=== PATIENT | male | born 1960 | race Caucasian/White ===

== ENCOUNTER 2020-07-30 14:16 | Day surgery (SDC) | payer OTHER ==
[2020-07-30] MEDS ORDERED: Depo-Medrol 40 MG/ML IM ONE (14:17)
[2020-07-30] MEDS ORDERED: Xylocaine 1% Vial 30 ML PF IJ ONE (14:17)
[2020-07-30] MEDS ORDERED: Sodium Chloride 0.9(Preservative Free) 10 ML IJ ONE (14:17)
--- NOTE | 2020-07-30 18:20 | XRAY ---
Indication: Right L4-S1 transforaminal WILL. Intraoperative fluoroscopy was provided for 52 seconds. 5 digital spot images submitted for interpretation demonstrates posterior needle tips projecting over the expected right L4 and L5 nerve roots. Small amount of contrast injected for needle tip placement. Correlate with intraoperative findings/report.
--- NOTE | 2020-07-30 18:22 | XRAY ---
52 seconds of fluoroscopy was used in surgery for a right L4-L5 and L5-S1 transforaminal WILL injection.
== END 2020-07-30 18:00 | disposition home or self-care (01) ==
LOC: SDC-PAIN 14:16
PROVIDERS: ATTEND Psychiatry & Neurology Pain Medicine
DX: M54.16 Radiculopathy, lumbar region (principal); E78.5 Hyperlipidemia, unspecified; G47.30 Sleep apnea, unspecified; F41.8 Other specified anxiety disorders; M35.00 Sjogren syndrome, unspecified; Z79.899 Other long term (current) drug therapy
CPT/HCPCS: 72100; 77003; J1030; J2001

== ENCOUNTER 2020-09-17 11:37 | Day surgery (SDC) | payer OTHER ==
[2020-09-17] MEDS ORDERED: Xylocaine 1% Vial 30 ML PF IJ ONE (11:38)
[2020-09-17] MEDS ORDERED: Sodium Chloride 0.9(Preservative Free) 10 ML IJ ONE (11:38)
[2020-09-17] MEDS ORDERED: Depo-Medrol 40 MG/ML IM ONE (11:38)
--- NOTE | 2020-09-17 15:14 | XRAY ---
Indication: Right L4-S1 transforaminal WILL. Intraoperative fluoroscopy provided for 35 seconds. 4 digital spot images submitted for interpretation demonstrates posterior needle tips projecting over the expected right L4 and L5 nerve roots. Small amount of contrast injected for needle tip placement. Correlate with intraoperative findings/report.
--- NOTE | 2020-09-17 15:17 | XRAY ---
35 seconds fluoroscopy time in surgery for right L3-L5 transforaminal WILL.
== END 2020-09-17 14:21 | disposition home or self-care (01) ==
LOC: SDC-PAIN 11:37
PROVIDERS: ATTEND Psychiatry & Neurology Pain Medicine
DX: M54.16 Radiculopathy, lumbar region (principal); E78.5 Hyperlipidemia, unspecified; G47.30 Sleep apnea, unspecified; F41.9 Anxiety disorder, unspecified; F32.9 Major depressive disorder, single episode, unspecified; M19.90 Unspecified osteoarthritis, unspecified site; Z79.899 Other long term (current) drug therapy
CPT/HCPCS: 64483; 64484; 72100; 77003; J1030; J2001; Q9966

== ENCOUNTER 2021-07-02 11:19 | Day surgery (SDC) | payer OTHER ==
[2021-07-02] MEDS ORDERED: Depo-Medrol 40 MG/ML IM ONE (11:20)
[2021-07-02] MEDS ORDERED: Sodium Chloride 0.9% 10 ML FLUSH Syringe IJ ONE (11:20)
[2021-07-02] MEDS ORDERED: Xylocaine 1% Vial 30 ML PF IJ ONE (11:20)
--- NOTE | 2021-07-02 14:08 | XRAY ---
Indication: Right L3-L5 transforaminal WILL. Intraoperative fluoroscopy provided for 37 seconds. 6 digital spot images submitted for interpretation demonstrates posterior needle tips projecting of the expected right L3 and L4 nerve roots. Small amount of contrast injected for needle tip placement. Correlate with intraoperative findings/report.
--- NOTE | 2021-07-02 14:35 | XRAY ---
37 seconds fluoroscopy time in surgery for right L3-L5 transforaminal WILL.
== END 2021-07-02 13:05 | disposition home or self-care (01) ==
LOC: SDC-PAIN 11:19
PROVIDERS: ATTEND Psychiatry & Neurology Pain Medicine
DX: M54.16 Radiculopathy, lumbar region (principal); Z79.899 Other long term (current) drug therapy
CPT/HCPCS: 64483; 64484; 72100; 77003; J1030; J2001; Q9966

== ENCOUNTER 2022-01-27 14:24 | Day surgery (SDC) | payer OTHER ==
[2022-01-27] MEDS ORDERED: Depo-Medrol 40 MG/ML IM ONE (14:25)
[2022-01-27] MEDS ORDERED: Sodium Chloride 0.9(Preservative Free) 10 ML IJ ONE (14:25)
[2022-01-27] MEDS ORDERED: XYLOCAINE-MPF 1% 5ML SDV IJ ONE (14:25)
--- NOTE | 2022-01-27 16:45 | XRAY ---
Indication: Right L3-L5 transforaminal WILL. Intraoperative fluoroscopy provided for 26 seconds. 4 digital spot image submitted for interpretation demonstrates posterior needle tips projecting over the expected right L3 and L4 nerve roots. Small amount of contrast injected for needle tip placement. Correlate with intraoperative findings/report.
--- NOTE | 2022-01-27 17:13 | XRAY ---
26 seconds of fluoroscopy was used in surgery for a right L3-L5 transforaminal WILL.
== END 2022-01-27 16:35 | disposition home or self-care (01) ==
LOC: SDC-PAIN 14:24
PROVIDERS: ATTEND Psychiatry & Neurology Pain Medicine
DX: M54.16 Radiculopathy, lumbar region (principal); Z79.899 Other long term (current) drug therapy
CPT/HCPCS: 64483; 64484; 72100; 77003; J1030; Q9966